=== PATIENT | female | born 1955 | race Caucasian/White ===

== ENCOUNTER 2016-06-10 05:26 | Day surgery (SDC) | payer OTHER ==
[2016-06-07 10:42] LABS: BASOPHILS % (AUTO) 0.7 % (0.0-2.0); EOSINOPHILS % (AUTO) 1.6 % (1.0-6.0); HEMATOCRIT 41.2 % (36-46); HEMOGLOBIN 13.7 g/dL (12.0-16.0); LYMPHOCYTES # (AUTO) 1.5 K/uL (1.0-4.8); LYMPHOCYTES % (AUTO) 25.2 % (22.0-44.0); MEAN CORPUSCULAR HEMOGLOBIN 30.4 pg (26.0-34.0); MEAN CORPUSCULAR HGB CONC 33.2 G/dL (31.0-37.0); MEAN CORPUSCULAR VOLUME 91 fL (80-100); MONOCYTES # (AUTO) 0.3 K/uL (0.1-1.0); MONOCYTES % (AUTO) 5.3 % (2.0-9.0); NEUTROPHILS % (AUTO) 67.2 % (40.0-70.0); PLATELET COUNT (AUTO) 288 K/uL (150-450); RED BLOOD CELL COUNT(AUTO) 4.51 MIL/uL (4.00-5.20); RED CELL DISTRIBUTION WIDTH 12.7 % (11.5-14.5); WHITE BLOOD COUNT (AUTO) 5.9 K/uL (4.5-11.0)
[2016-06-07 10:58] LABS: ALANINE AMINOTRANSFERASE 18 U/L (12-78); ALBUMIN 3.5 g/dL (3.4-5.0); ANION GAP 7 mmol/L (8-16); ASPARTATE AMINOTRANSFERASE 12 U/L (15-37); BILIRUBIN,TOTAL 0.4 mg/dL (0.1-1.0); CALCIUM, TOTAL 8.1 mg/dL (8.8-10.5); CARBON DIOXIDE 29 mmol/L (22-29); CHLORIDE 110 mmol/L (98-107); CREATININE 0.54 mg/dL (0.60-1.30); GLOMERULAR FILTR. RATE CALC > 60 mL/min (>60); SODIUM SERUM 146 mmol/L (136-145); TOTAL PROTEIN, SERUM 6.9 g/dL (6.4-8.2); UREA NITROGEN, BLOOD 10 mg/dL (7-18)
[~2016-06-10] VITALS: Ht 157.5 cm; Wt 63.6 kg
[~2016-06-10 05:26] MED LIST: CefoTEtan DISODIUM 1 GM/VIAL IVP ONE; EPHEDrine SULFATE 50 MG/ML VIAL IM ONE; FentaNYL CITRATE-PF 250 MCG/5 ML VIAL IVP ONE; GLYCOPYRROLATE 0.2 MG/ML VIAL IM ONE; KETOROLAC TROMETHAMINE 60 MG/2 ML VIAL IM ONE; LIDOCAINE HCL/PF 2% 5 ML VIAL IM ONE; METOCLOPRAMIDE HCL 5 MG/ML 2 ML VIAL IVP ONE; MIDAZOLAM HCL 2 MG/2 ML VIAL IVP ONE; NEOSTIGMINE METHYLSULFATE 1 MG/ML 10 ML VIAL IVP ONE; ONDANSETRON HCL 4 MG/2 ML VIAL IVP ONE; PROPOFOL 1% 20 ML VIAL IVP ONE; ROCURONIUM BROMIDE 10 MG/ML 5 ML VIAL IVP ONE; SUCCINYLCHOLINE CHLORIDE 20 MG/ML 10 ML VIAL IVP ONE
[2016-06-10] MEDS ORDERED: RINGERS SOLUTION,LACTATED 1,000 ML IV ONE (06:00)
[2016-06-10] MEDS ORDERED: GUM MASTIC/STORAX/MSAL/ALCOHOL LIQUID 0.67 ML VIAL TP ONE (06:40)
[2016-06-10] MEDS ORDERED: SODIUM CHLORIDE 0.9% 1,000 ML IV ONE (06:40)
[2016-06-10] MEDS ORDERED: CefoTEtan DISOD 1 GM/DEXTROSE 50 ML IV ONE (07:00)
[2016-06-10] MEDS: BUPIVACAINE HCL/PF 0.5% 30 ML VIAL ONE ×2 (07:49→08:16)
[2016-06-10] MEDS: LIDOCAINE HCL 2%/EPI 1:200,000/PF 10 ML VIAL ONE ×2 (07:49→08:17)
[2016-06-10] MEDS ORDERED: MEPERIDINE-PF 25 MG/ML SYRINGE IVP PRN (08:15)
[2016-06-10] MEDS ORDERED: FentaNYL CITRATE-PF 100 MCG/2 ML VIAL IVP PRN (08:15)
[2016-06-10] MEDS ORDERED: HYDROmorphone 2 MG/ML SYRINGE IVP PRN (08:15)
[2016-06-10] MEDS ORDERED: ACETAMINOPHEN 500 MG TABLET PO PRN (08:30)
[2016-06-10] MEDS ORDERED: HYDROCODONE/ACETAMINOPHEN 5-325 MG TABLET PO PRN (08:30)
[2016-06-10] MEDS ORDERED: IBUPROFEN 600 MG TABLET PO PRN (08:30)
[2016-06-10] MEDS ORDERED: OXYGEN THERAPY IH SCH (09:01)
[2016-06-10] MEDS ORDERED: IBUPROFEN 800 MG TABLET PO PRN (09:14)
== END 2016-06-10 10:45 | disposition home or self-care (01) ==
LOC: SURGERY 05:26
PROVIDERS: ATTEND Surgery
DX: K81.1 Chronic cholecystitis (principal); E11.9 Type 2 diabetes mellitus without complications
CPT/HCPCS: 36415; 47562; 80053; 85025; 88304; 93005; J0330; J1885; J2250; J2405; J2704; J2765; J3010; J3490 ×7; J7030

== ENCOUNTER 2018-03-07 19:21 | Emergency (ER) | payer OTHER ==
[~2018-03-07] VITALS: Ht 160 cm; Wt 67.3 kg
[2018-03-07] MEDS ORDERED: PRAV40TA4 PO (20:00)
[2018-03-07] MEDS ORDERED: TERB250 PO (20:01)
[2018-03-07] MEDS ORDERED: DICL2100G TP (20:01)
[2018-03-07 22:56] VITALS: BP 136/92
== END 2018-03-07 23:09 | disposition home or self-care (01) ==
LOC: EMS 19:22
DX: R51 Headache (principal); E78.00 Pure hypercholesterolemia, unspecified
CPT/HCPCS: 70450